=== PATIENT | male | born 1950 | race Two or more races ===

== ENCOUNTER 2021-12-17 10:33 | Outpatient (CLI) | payer OTHER ==
[~2021-12-17 10:33] MED LIST: CRESTOR5 MG PO; SYNTHROID50 MCG PO
== END 2021-12-17 10:34 | disposition home or self-care (01) ==
LOC: LAB 10:33 → EKG 10:33 → LAB 10:34
PROVIDERS: ATTEND Ophthalmology
DX: H25.013 Cortical age-related cataract, bilateral (principal); I10 Essential (primary) hypertension